=== PATIENT | male | born 1930 | race Caucasian/White ===

== ENCOUNTER 2018-10-20 06:20 | Inpatient (IN) | payer MEDICARE, MEDICAID ==
[2018-10-19 12:07] VITALS: BMI 29.1
--- NOTE | 2018-10-20 06:41 | CP.PCM.HP ---
History of Present Illness - History of Present Illness History of Present Illness: Consulted for Clearance for patient undergoing surgery today. 88 y/o [place] male PMH below here for elective Left TKR - cleared by Andreas Majano who is PMD. Patient has no cp, no sob, no fever chills, no abd pain. Only arthritis and uses a cane to walk. Arthritis is for both knees and left knee is being done today. ROS: all other systems negative. PMH: Hypertension Gerd FH: no inherited diseases SurgH: none only had colonoscopy SH: used to smoke quit 60 yrs ago no drugs no alcohol Meds: Omeprazole zofran atenolol - not taking for 1 month lisinopril - not taking for 1 month meloxicam Allergies: nkda Present on Admission - Present on Admission Any Indicators Present on Admission: No History of DVT/PE: No History of Uncontrolled Diabetes: No Urinary Catheter: No Decubitus Ulcer Present: No Review of Systems - Review of Systems All systems: reviewed and no additional remarkable complaints except Review of Systems: HPI Past Patient History - Past Medical History & Family History Past Medical History?: Yes - Past Social History Smoking Status: Former Smoker Chewing Tobacco Use: No Cigar Use: No Alcohol: None Drugs: Denies - CARDIAC Hx Cardiac Disorders: Yes Hx Hypertension: Yes - PULMONARY Hx Respiratory Disorders: No - NEUROLOGICAL Hx Neurological Disorder: No - HEENT Hx HEENT Problems: No - RENAL Hx Chronic Kidney Disease: No - ENDOCRINE/METABOLIC Hx Endocrine Disorders: No - HEMATOLOGICAL/ONCOLOGICAL Hx Blood Disorders: No - INTEGUMENTARY Hx Dermatological Problems: No - MUSCULOSKELETAL/RHEUMATOLOGICAL Hx Musculoskeletal Disorders: Yes Hx Arthritis: Yes (knees) Other/Comment: pelvic pain - GASTROINTESTINAL Hx Gastrointestinal Disorders: No - GENITOURINARY/GYNECOLOGICAL Hx Genitourinary Disorders: No - PSYCHIATRIC Hx Psychophysiologic Disorder: No - SURGICAL HISTORY Hx Surgeries: No - ANESTHESIA Hx Anesthesia: No Hx Anesthesia Reactions: No Meds Allergies/Adverse Reactions: Allergies Allergy/AdvReac Type Severity Reaction Status Date / Time No Known Allergies Allergy Verified 10/19/18 12:06 Physical Exam - Constitutional Appears: Well, Non-toxic, No Acute Distress - Head Exam Head Exam: ATRAUMATIC - Eye Exam Eye Exam: Normal appearance - ENT Exam ENT Exam: Mucous Membranes Moist - Neck Exam Neck exam: Positive for: Normal Inspection - Respiratory Exam Respiratory Exam: Clear to Auscultation Bilateral, NORMAL BREATHING PATTERN. absent: Rales, Rhonchi, Wheezes - Cardiovascular Exam Cardiovascular Exam: REGULAR RHYTHM, +S1, +S2 - GI/Abdominal Exam GI & Abdominal Exam: Normal Bowel Sounds, Soft. absent: Tenderness - Extremities Exam Extremities exam: Positive for: joint swelling. Negative for: pedal edema Additional comments: both knees pain with walking walks with cane - Neurological Exam Neurological exam: Alert, Oriented x3 - Psychiatric Exam Psychiatric exam: Normal Affect, Normal Mood - Skin Skin Exam: Normal Color Assessment & Plan - Assessment and Plan (Free Text) Assessment: 88 yo male pmh htn currently not taking meds bp was controlled despite meds with PMD. Here for Left TKR. Patient age and hypertension are risks for surgery. Family aware of risks. May proceed with surgery mod risk due to age. We will follow post operatively. Dr. Goddard and team to address dvt proph and pain.
[2018-10-20] MEDS ORDERED: Bacitracin Ointment 30 GM TUBE ONE (07:20)
[2018-10-20] MEDS ORDERED: ceFAZolin IV 1 gm in Dextrose 2 GM/100 ML BAG IVPB ONE (07:20)
[2018-10-20] MEDS ORDERED: Thrombin Topical 5,000 Int Units Spray Kit ONE (07:21)
[2018-10-20] MEDS ORDERED: Absorbable Gelatin Sponge Size 12-7 ONE (07:21)
--- NOTE | 2018-10-20 07:22 | CP.PCM.CON ---
History of Present Illness - History of Present Illness History of Present Illness: Orthopedic consultation Dr. Goddard 88M complains of left knee DJD failed conservative mgmt and elected for TKR. PMH: HTN PSH: denies non smoker medical clearance on chart Dr. Andreas Barlow Review of Systems - Review of Systems All systems: reviewed and no additional remarkable complaints except - Musculoskeletal Musculoskeletal: As Per HPI Past Patient History - Past Medical History & Family History Past Medical History?: Yes Past Family History: Reviewed and not pertinent - Past Social History Smoking Status: Former Smoker Chewing Tobacco Use: No Cigar Use: No Alcohol: None Drugs: Denies - CARDIAC Hx Cardiac Disorders: Yes Hx Hypertension: Yes - PULMONARY Hx Respiratory Disorders: No - NEUROLOGICAL Hx Neurological Disorder: No - HEENT Hx HEENT Problems: No - RENAL Hx Chronic Kidney Disease: No - ENDOCRINE/METABOLIC Hx Endocrine Disorders: No - HEMATOLOGICAL/ONCOLOGICAL Hx Blood Disorders: No - INTEGUMENTARY Hx Dermatological Problems: No - MUSCULOSKELETAL/RHEUMATOLOGICAL Hx Musculoskeletal Disorders: Yes Hx Arthritis: Yes (knees) Other/Comment: pelvic pain - GASTROINTESTINAL Hx Gastrointestinal Disorders: No - GENITOURINARY/GYNECOLOGICAL Hx Genitourinary Disorders: No - PSYCHIATRIC Hx Psychophysiologic Disorder: No - SURGICAL HISTORY Hx Surgeries: No - ANESTHESIA Hx Anesthesia: No Hx Anesthesia Reactions: No (as per son) Has any member of the family had a problem w/ anesthesia?: No Meds Allergies/Adverse Reactions: Allergies Allergy/AdvReac Type Severity Reaction Status Date / Time No Known Allergies Allergy Verified 10/19/18 12:06 Physical Exam - Constitutional Appears: Well, No Acute Distress - Extremities Exam Additional comments: +DP/PT pulses calves soft NT neg homans sensation intact - Expanded Lower Extremities Exam Left Knee exam: full ROM, tenderness Ankle exam: FULL ROM, NORMAL INSPECTION - Neurological Exam Neurological exam: Alert, Oriented x3 - Psychiatric Exam Psychiatric exam: Normal Affect, Normal Mood - Skin Skin Exam: Dry, Intact, Normal Color, Warm Assessment & Plan (1) Primary osteoarthritis of left knee Assessment and Plan: NPO T&S for OR Status: Acute (2) Hypertension Status: Acute (3) Vitamin D deficiency Assessment and Plan: 13 on pATs supp Status: Acute
[2018-10-20] MEDS ORDERED: Succinylcholine 200 mg/10 ml Inj IV ONE (07:39)
[2018-10-20] MEDS ORDERED: Propofol 10 mg/ml Inj (20 ML) ONE (07:39)
[2018-10-20] MEDS ORDERED: Lidocaine 1% 5ml Abboject ONE ×2 (07:39→08:06)
[2018-10-20] MEDS ORDERED: Etomidate 20 mg/10ml Inj IV ONE (07:39)
[2018-10-20] MEDS ORDERED: Lactated Ringer's 1,000 ML IV ONE ×2 (07:45→11:00)
[2018-10-20] MEDS ORDERED: Ropivacaine 0.5% 30ML IV ONE (07:50)
[2018-10-20] MEDS ORDERED: Lactated Ringer's 500 ML IV ONE (08:00)
[2018-10-20] MEDS ORDERED: Tranexamic Acid 1,000 MG in Sodium Chloride 0.9% 100 ML IVPB ONE (08:05)
[2018-10-20] MEDS ORDERED: Midazolam 2 MG/2 ML VIAL ONE (08:09)
[2018-10-20] MEDS ORDERED: Rocuronium 10 mg/ml (5 ml) ONE ×2 (08:23→08:57)
[2018-10-20] MEDS ORDERED: ePHEDrine 50 mg/ml Inj ONE (08:30)
[2018-10-20] MEDS ORDERED: Phenylephrine 10 mg/ml Inj ONE ×2 (08:31→08:32)
[2018-10-20 08:48] LABS: URINE BILIRUBIN NEGATIVE (NEGATIVE); URINE BLOOD SMALL (NEGATIVE); URINE CLARITY CLEAR (Clear); URINE COLOR YELLOW (YELLOW); URINE GLUCOSE (UA) NEG (NEGATIVE); URINE LEUKOCYTE ESTERASE NEG Leu/uL (Negative); URINE PROTEIN NEGATIVE (NEGATIVE); URINE UROBILINOGEN 0.2-1.0 mg/dL (0.2-1.0)
[2018-10-20] MEDS ORDERED: Neostigmine 1:1000 (1 mg/ml) Inj ONE (09:23)
[2018-10-20] MEDS ORDERED: Dexamethasone 4 mg/1 ml ONE (09:25)
[2018-10-20] MEDS ORDERED: Esmolol 100 mg/10ml Inj IV ONE (10:36)
--- NOTE | 2018-10-20 10:47 | PCM.SURG1 ---
Surgeon's Initial Post Op Note - Surgeon's Notes Surgeon: Rupesh [employer] Support Equipment Repairer: LESLIE Martin CRNFA Type of Anesthesia: General Endo, Spinal, Block Regional Anesthesia Administered By: DR Pratik Mayo Pre-Operative Diagnosis: sEVERE TRICOMPARTMENTAL o/a l KNEE Operative Findings: SEVERE TRICOMPARTMENTALo/a l KNEE. TRICOMPARTMENAL SYOVITISD WITH L;OOSE BODY. POSTERIOR CAPSULAR CONTRACTURE. LATERAL PATELLA CONTRACTURE Post-Operative Diagnosis: as above Operation Performed: L TKR. arthrotmy synovectomy/excision loose body. posterior capsule release. lateral patella release. computer navigation Specimen/Specimens Removed: synovium/loose body/ osteophytes Estimated Blood Loss: EBL {In ML}: 15 Blood Products Given: N/A Drains Used: No Drains Post-Op Condition: Fair Date of Surgery/Procedure: 10/20/18 Time of Surgery/Procedure: 08:55 (time in room 8:05/ anaesthesia indcution time 8:05)
[2018-10-20] MEDS ORDERED: Sodium Chloride 0.9% 1,000 ML IV SCH (11:00)
--- NOTE | 2018-10-20 11:18 | PCM.ANESB3 ---
Femoral Nerve Block - Femoral Nerve Block Date of Procedure: 10/20/18 Anesthesiologist: mala Pre-Procedure Diagnosis: L knee djd Post-Procedure Diagnosis: left knee djd Procedure Performed: Femoral Nerve Block Left - Procedure Femoral Nerve Block: The procedure was explained to the patient that it is for the post-operative pain management. Consent was obtained after a thorough discussion with the patient regarding the benefits and possible complications of local anesthetic block of the femoral nerve at the inguinal crease area. The patient was brought to the operating room and standard monitors were applied. Time-out was held with the circulating nurse to confirm the correct surgery and the appropriate block. After applying oxygen by nasal cannula and administering IV Sedation, patient was placed in supine position with fully extended lower extremities and the left___ groin exposed. The femoral artery was then carefully palpated. The ultrasound transducer was then applied to this area in the transverse plane and the femoral nerve was visualized lateral to the femoral artery and underneath the fascia iliaca. After thorough identification, the inguinal crease area was prepped with Betadine solution three times and 1 % Lidocaine was injected subcutaneously for topical anesthesia. At this point, a #22 gauge Stimuplex 2-inch needle was inserted immediately lateral to the femoral artery pulse at the inguinal crease and advanced perpendicularly. The needle was inserted to the ultrasound transducer in-plane towards the femoral nerve in a [id number] direction. Needle advancement was performed carefully under direct ultrasound visualization. Nerve stimulator was used and twitch of the left quadriceps muscle was obtained at current of _2.0____MA. After negative aspiration, _1____cc of _0.5____% __ropivicaine was injected and this was followed with ___19___ cc of __0.5 % _ropivicaine . Under ultrasound guidance the local anesthetics were observed spreading below fascia iliaca and around the femoral nerve. The needle was removed intact and sterile dressing was applied. The patient had stable vital signs, was conscious and in no apparent distress. The patient tolerated the left femoral nerve block well with stable vital signs and was prepared for subsequent surgery.
--- NOTE | 2018-10-20 11:51 | RAD ---
Date of service: 10/20/2018 PROCEDURE: Left Knee Radiographs. HISTORY: Pain. COMPARISON: None. FINDINGS: BONES: Status post left knee arthroplasty. No acute fracture. Prosthesis grossly intact. JOINTS: Normal. No osteoarthritis. JOINT EFFUSION: None. OTHER FINDINGS: Postoperative changes in anterior soft tissues with subcutaneous gas and anterior staple line IMPRESSION: Total knee replacement.
[2018-10-20] MEDS: HYDROmorphone 0.5 mg/0.5 ml ISec IVP PRN ×5 (12:08→13:20)
[2018-10-20] MEDS ORDERED: HYDROmorphone 0.5 mg/0.5 ml ISec IVP PRN (13:00)
[2018-10-20] MEDS ORDERED: HYDROmorphone 0.5 mg/0.5 ml ISec ONE (13:04)
[2018-10-20] MEDS ORDERED: Labetalol 5mg/ml (4ml) IVP PRN (13:57)
[2018-10-20] MEDS ORDERED: Labetalol 5mg/ml (4ml) ONE (14:02)
[2018-10-20] MEDS ORDERED: Labetalol 5 mg/ml Inj 20ML IVP PRN (14:10)
[2018-10-20] MEDS: Labetalol 5mg/ml (4ml) IVP PRN ×2 (14:30→14:45)
[2018-10-20] MEDS ORDERED: oxyCODONE 5 mg Immediate Release Tab PO PRN (17:05)
[2018-10-20] MEDS: ceFAZolin IV 2 gm in Dextrose 2 GM/50 ML BAG IVPB SCH (18:00)
[2018-10-21] MEDS: ceFAZolin IV 2 gm in Dextrose 2 GM/50 ML BAG IVPB SCH
[2018-10-21 06:27] LABS: HEMOGLOBIN 11.9 g/dL (12.0-18.0); MEAN CELL VOLUME 94.8 fl (80.0-94.0); MEAN CORPUSCULAR HEMOGLOBIN 31.6 pg (27.0-31.0); MEAN CORPUSCULAR HGB CONC 33.3 g/dL (33.0-37.0); RBC 3.77 Mil/uL (4.40-5.90); RED CELL DISTRIBUTION WIDTH 13.2 % (11.5-14.5); WHITE BLOOD COUNT 12.5 K/uL (4.8-10.8)
[2018-10-21 06:39] LABS: BLOOD UREA NITROGEN 15 mg/dl (9-20); CALCIUM 8.6 mg/dL (8.4-10.2); GFR NON-AFRICAN AMERICAN > 60
--- NOTE | 2018-10-21 08:35 | CP.PCM.PN ---
Subjective - Date & Time of Evaluation Date of Evaluation: 10/21/18 Time of Evaluation: 08:33 - Subjective Subjective: 88M seen and evaluated at bedside. Resting comfortably. States his pain is controlled as compared to yesterday. States he has moved his bowels but has a godinez as he was unable to urinate after the surgery. States he has been able to eat a little bit but is not very hungry. Complains of dry mouth. Denies N/V/F/C/SOB/CP and denies acute events overnight. Objective - Vital Signs/Intake and Output Vital Signs (last 24 hours): Temp Pulse Resp BP Pulse Ox 99.1 F 86 17 138/70 96 10/21/18 04:00 10/21/18 04:00 10/21/18 04:00 10/21/18 04:00 10/21/18 04:00 Intake and Output: 10/21/18 10/21/18 06:59 18:59 Intake Total 1250 Output Total 1500 Balance -250 - Medications Medications: Current Medications Acetaminophen (Tylenol 325mg Tab) 650 mg PO Q6 [facility] [place] Last Admin: 10/21/18 03:04 Dose: 650 mg Atenolol (Tenormin) 25 mg PO DAILY [facility] Last Admin: 10/20/18 18:06 Dose: 25 mg Calcium/Vitamin D (Oyster Shell Calcium/Vitamin D 500 Mg-200 Iu) 1 tab PO DAILY [facility] [place] Cholecalciferol (Vitamin D) 2,000 intlu PO DAILY [facility] [place] Docusate Sodium (Colace) 100 mg PO BID [facility] Last Admin: 10/20/18 18:05 Dose: 100 mg Enoxaparin Sodium (Lovenox) 40 mg SC DAILY [facility] [place]; Protocol Hydralazine HCl (Apresoline) 10 mg PO QID PRN PRN Reason: Other Last Admin: 10/20/18 18:06 Dose: 10 mg Labetalol HCl (Trandate) 5 mg IVP Q15MIN PRN PRN Reason: Systolic Blood Pressure Last Admin: 10/20/18 14:45 Dose: 5 mg Lisinopril (Zestril) 20 mg PO DAILY [facility] [place] Last Admin: 10/20/18 16:35 Dose: 20 mg Morphine Sulfate (Morphine) 2 mg IVP Q4 PRN PRN Reason: Pain, severe (8-10) Ondansetron HCl (Zofran Inj) 4 mg IVP Q6 PRN PRN Reason: Nausea/Vomiting Oxycodone HCl (Oxycodone Immediate Release Tab) 5 mg PO Q6 PRN PRN Reason: Pain, moderate (4-7) Pantoprazole Sodium (Protonix Ec Tab) 40 mg PO DAILY [facility] - Labs Labs: 10/21/18 05:40 10/21/18 05:40 - Constitutional Appears: Well, Non-toxic, No Acute Distress - Head Exam Head Exam: ATRAUMATIC - Eye Exam Eye Exam: Normal appearance - ENT Exam ENT Exam: Mucous Membranes Dry - Neck Exam Neck Exam: Normal Inspection - Respiratory Exam Respiratory Exam: Clear to Ausculation Bilateral, NORMAL BREATHING PATTERN - Cardiovascular Exam Cardiovascular Exam: REGULAR RHYTHM, +S1, +S2 - GI/Abdominal Exam GI & Abdominal Exam: Soft, Normal Bowel Sounds. absent: Tenderness - Extremities Exam Additional comments: L knee dressing c/d/i cap refill <3 seconds no pedal edema able to move toes gross and protective sensation intact - Neurological Exam Neurological Exam: Alert, Awake, Oriented x3 - Psychiatric Exam Psychiatric exam: Normal Affect, Normal Mood - Skin Skin Exam: Normal Color Assessment and Plan - Assessment and Plan (Free Text) Assessment: 88M with pmhx of HTN that is controlled despite not taking medications currently POD 1 L TKR Plan: 1. L knee osteoarthritis - Orthopedic consult - Dr. Goddard, recs appreciated - POD 1 L TKR - x-ray - adequate postoperative status, L TKR - Ancef 2 gm x2 doses for prophylaxis completed - pain controlled - continue to monitor labs - PT/OT consult - pending f/u recs - continue with incentive spirometry 2. HTN - chronic - lisinopril, atenolol, labetalol (max [address] Cameron) 3. Diet - heart healthy 4. DVT prophylaxis - Lovenox 40 mg SC daily
[2018-10-21] MEDS ORDERED: Calcium-Vit D 500 mg-200 Units Tab UD PO SCH (09:00)
[2018-10-21] MEDS ORDERED: Enoxaparin 40 mg Syringe SC SCH (09:00)
[2018-10-21] MEDS ORDERED: Cholecalciferol 1,000 INTLU TAB PO SCH (09:00)
[2018-10-21] MEDS ORDERED: Pantoprazole 40 mg EC Tab PO SCH (09:00)
--- NOTE | 2018-10-21 14:03 | CP.PCM.PN ---
Subjective - Date & Time of Evaluation Date of Evaluation: 10/21/18 Time of Evaluation: 14:01 - Subjective Subjective: Patient states pain is controlled. Tolerating PT. Objective - Vital Signs/Intake and Output Vital Signs (last 24 hours): Temp Pulse Resp BP Pulse Ox 98.8 F 81 20 124/76 95 10/21/18 08:47 10/21/18 09:11 10/21/18 08:47 10/21/18 09:11 10/21/18 08:47 Intake and Output: 10/21/18 10/21/18 06:59 18:59 Intake Total 1250 Output Total 1700 Balance -450 - Medications Medications: Current Medications Acetaminophen (Tylenol 325mg Tab) 650 mg PO Q6 [facility] Last Admin: 10/21/18 09:07 Dose: 650 mg Atenolol (Tenormin) 25 mg PO DAILY [facility] Last Admin: 10/21/18 09:11 Dose: 25 mg Calcium/Vitamin D (Oyster Shell Calcium/Vitamin D 500 Mg-200 Iu) 1 tab PO DAILY [facility] Last Admin: 10/21/18 09:10 Dose: 1 tab Cholecalciferol (Vitamin D) 2,000 intlu PO DAILY [facility] Last Admin: 10/21/18 09:11 Dose: 2,000 intlu Docusate Sodium (Colace) 100 mg PO BID [facility] Last Admin: 10/21/18 09:10 Dose: 100 mg Enoxaparin Sodium (Lovenox) 40 mg SC DAILY [facility]; Protocol Hydralazine HCl (Apresoline) 10 mg PO QID PRN PRN Reason: Other Last Admin: 10/20/18 18:06 Dose: 10 mg Labetalol HCl (Trandate) 5 mg IVP Q15MIN PRN PRN Reason: Systolic Blood Pressure Last Admin: 10/20/18 14:45 Dose: 5 mg Lisinopril (Zestril) 20 mg PO DAILY [facility] Last Admin: 10/21/18 09:11 Dose: 20 mg Morphine Sulfate (Morphine) 2 mg IVP Q4 PRN PRN Reason: Pain, severe (8-10) Ondansetron HCl (Zofran Inj) 4 mg IVP Q6 PRN PRN Reason: Nausea/Vomiting Oxycodone HCl (Oxycodone Immediate Release Tab) 5 mg PO Q6 PRN PRN Reason: Pain, moderate (4-7) Pantoprazole Sodium (Protonix Ec Tab) 40 mg PO DAILY [facility] Last Admin: 10/21/18 09:11 Dose: 40 mg - Labs Labs: 10/21/18 05:40 10/21/18 05:40 - Extremities Exam Additional comments: LLE: +ROM ankle/toes, sensation intact +DP/PT Pulses calves soft NT neg homans Assessment and Plan (1) Primary osteoarthritis of left knee Assessment & Plan: POD#1 s/p left TKR PT/OT VTE proph f/u labs d/c planning d/w Dr. Goddard, agrees with above Status: Acute (2) Hypertension Assessment & Plan: cont homes Status: Acute (3) Vitamin D deficiency Status: Acute
[2018-10-21] MEDS ORDERED: Benzocaine/Menthol (Cepacol) Lozenge PO ONE (15:51)
--- NOTE | 2018-10-21 16:04 | CP.PCM.DIS ---
Provider - Provider Date of Admission: 10/20/18 08:06 Attending physician: Cuco Gonzáles MD Consults: 10/20/18 08:06 Case Management Referral Routine Comment: Physician Instructions: Reason For Exam: Reason for Referral: Discharge Planning 10/20/18 08:11 Physician Consult Routine Comment: Consulting Provider: Felix Goddadr III Consulting Physician: Felix Goddard III Reason for Consult: tkr Time Spent in preparation of Discharge (in minutes): 30 Diagnosis - Discharge Diagnosis (1) Primary osteoarthritis of left knee Status: Acute Hospital Course - Lab Results Lab Results: Most Recent Lab Values WBC 12.5 K/uL (4.8-10.8) H D 10/21/18 05:40 RBC 3.77 Mil/uL (4.40-5.90) L 10/21/18 05:40 Hgb 11.9 g/dL (12.0-18.0) L 10/21/18 05:40 Hct 35.7 % (35.0-51.0) 10/21/18 05:40 MCV 94.8 fl (80.0-94.0) H D 10/21/18 05:40 MCH 31.6 pg (27.0-31.0) H 10/21/18 05:40 MCHC 33.3 g/dL (33.0-37.0) 10/21/18 05:40 RDW 13.2 % (11.5-14.5) 10/21/18 05:40 Plt Count 218 K/uL (130-400) 10/21/18 05:40 Sodium 137 mmol/l (132-148) 10/21/18 05:40 Potassium 3.7 MMOL/L (3.6-5.0) 10/21/18 05:40 Chloride 101 mmol/L (98-107) 10/21/18 05:40 Carbon Dioxide 25 mmol/L (22-30) 10/21/18 05:40 Anion Gap 15 (10-20) 10/21/18 05:40 BUN 15 mg/dl (9-20) 10/21/18 05:40 Creatinine 1.0 mg/dl (0.8-1.5) 10/21/18 05:40 Est GFR ( Amer) > 60 10/21/18 05:40 Est GFR (Non-Af Amer) > 60 10/21/18 05:40 Random Glucose 126 mg/dL (75-110) H 10/21/18 05:40 Calcium 8.6 mg/dL (8.4-10.2) 10/21/18 05:40 Urine Color Yellow (YELLOW) 10/20/18 07:30 Urine Clarity Clear (Clear) 10/20/18 07:30 Urine pH 7.0 (5.0-8.0) 10/20/18 07:30 Ur Specific [place] 1.018 (1.003-1.030) 10/20/18 07:30 Urine Protein Negative mg/dL (NEGATIVE) 10/20/18 07:30 Urine Glucose (UA) Neg mg/dL (NEGATIVE) 10/20/18 07:30 Urine Ketones Negative mg/dL (NEGATIVE) 10/20/18 07:30 Urine Blood Small (NEGATIVE) 10/20/18 07:30 Urine Nitrate Negative (NEGATIVE) 10/20/18 07:30 Urine Bilirubin Negative (NEGATIVE) 10/20/18 07:30 Urine Urobilinogen 0.2-1.0 mg/dL (0.2-1.0) 10/20/18 07:30 Ur Leukocyte Esterase Neg Juan Jose/uL (Negative) 10/20/18 07:30 Urine RBC (Auto) 7 /hpf (0-3) H 10/20/18 07:30 Urine Microscopic WBC 1 /hpf (0-5) 10/20/18 07:30 - Hospital Course Hospital Course: 88M with pmhx of HTN and osteoarthritis of both knees presented to [facility] and seen for elective Left TKR - cleared by Andreas Majano who is PMD. Patient failed conservative treatment for osteoarthritis of left knee. While in house orthopedics was consulted and Dr. Goddard performed L TKR. Ancef 2 gm was given for prophylaxis. PT/OT was consulted and recommended further skilled PT. HTN is chronic and patient was not taking medication. Started on lisinopril and atenolol while in house, continue as outpatient. Lovenox 40 mg SC daily as DVT prophylaxis while in house. Patient for d/c to TCU for PT, deconditiong, and pain control. - Date & Time of H&P Date of H&P: 10/21/18 Time of H&P: 16:02 Discharge Exam - Head Exam Head Exam: ATRAUMATIC - Eye Exam Eye Exam: Normal appearance - ENT Exam ENT Exam: Mucous Membranes Moist - Neck Exam Neck exam: Normal Inspection - Respiratory Exam Respiratory Exam: Clear to PA & Lateral, NORMAL BREATHING PATTERN - Cardiovascular Exam Cardiovascular Exam: REGULAR RHYTHM, +S1, +S2 - GI/Abdominal Exam GI & Abdominal Exam: Normal Bowel Sounds, Soft. absent: Tenderness - Extremities Exam Additional comments: LLE: +ROM ankle/toes, sensation intact +DP/PT Pulses calves soft NT neg homans Dressing c/d/i - Neurological Exam Neurological exam: Alert, Oriented x3 - Psychiatric Exam Psychiatric exam: Normal Affect, Normal Mood - Skin Skin Exam: Normal Color Discharge Plan - Follow Up Plan Condition: GOOD Disposition: REHAB FACILITY/REHAB UNIT Clinical Quality Measures - Date & Time of Discharge Summary Date of Discharge Summary: 10/21/18 Time of Discharge Summary: 16:05
[2018-10-21 16:51] VITALS: TEMP 98
[2018-10-21 18:13] VITALS: BP 142/73; PULSE 80; RESP 19; O2SAT 98
--- NOTE | 2018-10-22 22:40 | OP ---
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 POSTOPERATIVE DIAGNOSES: 1. 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 2. Tricompartmental synovitis. 3. Loose bodies. 4. Posterior capsular contracture. 5. Lateral patellar retinacular contracture. OPERATIVE FINDINGS: 1, Again as above, severe tricompartmental osteoarthritis of the left knee. 2. Tricompartmental synovitis with loose body. 3. Posterior capsular contracture. 4. Lateral patellar retinacular contracture. OPERATIVE PROCEDURES: 1. Left total knee replacement arthroplasty. 2. Anterior and posterior synovectomy. 3. Posterior capsular release. 4. Lateral patellar retinacular release. 5. Computer navigation. SURGEON: Felix Goddard MD PRIMARY SPECIAL EDUCATOR: Lissy Morales PA-C SECOND PRESSURE SEALER AND TESTER: Laura Christopher, certified registered nursing [employer]. BLOOD LOSS: 15 mL. No blood products given. DRAINS: No drains. POSTOPERATIVE CONDITION: Stable. ANESTHESIA INDUCTION TIME: 08:05. INCISION TIME: 08:55. OPERATIVE INDICATION: Mart Cunningham is an 88-year-old gentleman, referred to me by Dr. Simmons, who presents with severe osteoarthritis of the left knee. The patient can no longer withstand the discomfort. Pros, cons, risks and benefits of replacement arthroplasty were discussed. The possibility of mechanical failure, infection, thromboembolic disease, secondary surgery and tertiary surgery is discussed by informed consent with the computer mediated translation service as well as through his son, David. The patient wished the surgery to be accomplished. OPERATIVE PROCEDURE: After having obtained informed consent in the above fashion, after having identified the side, site and procedure and critical pause/time-out, after the satisfactory induction of the anesthetic, the patient identified as Mart Cunningham in the supine position with all bony prominences well padded. The left lower extremity was prepped and free draped in usual fashion for lower extremity surgery. The tourniquet had been applied, but was not yet inflated. After exsanguinating the limb using a 6-inch Esmarch bandage, the tourniquet which had been applied was inflated to 350 mmHg. A straight midline approach was made to the knee. The skin incision was carried down through the skin and subcutaneous tissue. The dissection was carried down to level of prepatellar bursa. Medial and lateral patellar retinaculum were exposed. A medial arthrotomy was accomplished. Dissection was carried around posteromedially to the direct head of the semimembranosus tendon. A portion of the patellar ligament is elevated. The patella was everted. The knee is flexed. Medial and lateral meniscectomies were accomplished. Anterior and posterior cruciate ligaments were excised. The tibia was dislocated anteriorly. An initial osteotomy of the arthroplasty was accomplished on the tibial side. This having been accomplished, a portion of the iliotibial band was released. Immediately on dislocating the tibia, there found to be too large loose bodies which are excised. Anterior synovectomy was accomplished and at this point in time, the initial osteotomy was accomplished. On the patella, border osteophytes were debrided. The patella girth was 30 mm. Freehand patella osteotomy is accomplished and the patella was protected. The computer navigation commenced at this point in time with the computer navigation device. The anterior strut was placed on the proximal medial aspect of the tibia. The sensor was applied as was the accelerometer. This having been accomplished, the offset is registered, the offset being the posterior insertion of the anterior cruciate ligament. Anterior and posterior cruciate ligaments were excised. Medial and lateral meniscectomies were accomplished. The alignment was accomplished. The proximal tibia is cut approximately 1 mm below the most deficient side. Osteotomy having been accomplished, the iliotibial band insertion into lateral aspect of the tibia and Gerdy's tubercle was released and attention was turned to the femur. Notch osteophytes, border osteophytes were debrided. The guide pin for registration was placed at the superior aspect of the intercondylar notch. Distal femoral cutting guide was applied. The sensor was applied as was the accelerometer. The hip center was found and the index offset is registered as well. The cut is set to 0 degrees of varus-valgus and 0.5 degrees of flexion of the component. The distal cut was accomplished 10 mm and the 10 mm osteotomy was accomplished. This having been accomplished, the anterior and posterior sizing is for 2.5 femoral component. The 4-in-1 block was placed across the epicondylar axis. Anterior and posterior osteotomies were accomplished. Chamfer cuts were accomplished. The lamina right of way appraiser was placed. The posterior capsule was released. This having been accomplished with the posterior capsular release having been accomplished, anterior and posterior synovectomy having been accomplished and the wound was thoroughly irrigated. The intercondylar notch was reamed, but at this point in time, the #2 tibial component was placed. Guidance rotation of the lateral aspect of tibial condyle, mid malleolar axis, and medial third of the tibial tuberosity. Trial components were placed with 15 mm tibial insert and the flexion/extension gap was found to be excellent. This having been accomplished, the wound was thoroughly irrigated. The patella was sized to a 32 mm patella. A lateral patellar retinacular release was accomplished from inside out. The patella was found to be stable. Posterior capsule having been released, the tibia, femur and patella were prepared. A #2.5 cemented femoral component is cemented, the 2 mm tibial component, 15 mm polyethylene and 32 mm patella. This having been accomplished, all device having been cemented, the wound was thoroughly irrigated. Hemostasis controlled with the Aquamantys. Flexion/extension balance, patella balance was found to be excellent and the computer navigation again in the aforementioned fashion had been accomplished on both the tibial and femoral sides. Closures in layers, #2 FiberWire followed by 0 Vicryl, 2-0 Vicryl, and jennifer for skin. No drain was employed. David Roc compression dressing and knee immobilizers were employed. Felix Goddard MD
== END 2018-10-21 20:40 | DRG 470 ==
LOC: H.OPSURG 06:20 → H.MEDSURG1 08:06
PROVIDERS: ADMIT Internal Medicine; ATTEND Internal Medicine
PROC: 0SND0ZZ Release Left Knee Joint, Open Approach (ICD-10-PCS; 2018-10-20)
PROC: 3E0T3BZ Introduction of Anesthetic Agent into Peripheral Nerves and Plexi, Percutaneous Approach (ICD-10-PCS; 2018-10-20)
PROC: 0SRD0JZ Replacement of Left Knee Joint with Synthetic Substitute, Open Approach (ICD-10-PCS; principal; 2018-10-20 07:45)
PROC: 0SBD0ZZ Excision of Left Knee Joint, Open Approach (ICD-10-PCS; 2018-10-20 07:45)
DX: M17.0 Bilateral primary osteoarthritis of knee (principal); M65.9 Synovitis and tenosynovitis, unspecified; Z87.891 Personal history of nicotine dependence; Z96.652 Presence of left artificial knee joint; R68.2 Dry mouth, unspecified; E55.9 Vitamin D deficiency, unspecified; I10 Essential (primary) hypertension; K21.9 Gastro-esophageal reflux disease without esophagitis

== ENCOUNTER 2018-11-03 12:08 | Inpatient (IN) | payer MEDICARE, MEDICAID ==
[2018-11-03 13:22] LABS: BASO # 0.1 K/uL (0.0-0.2); BASO % 0.5 % (0.0-2.0); EOS # 0.2 K/uL (0.0-0.7); EOS % 0.9 % (0.0-4.0); LYMPH # 1.5 K/uL (1.0-4.3); LYMPH % 8.9 % (20.0-40.0); MEAN CELL VOLUME 96.7 fl (80.0-94.0); MEAN CORPUSCULAR HEMOGLOBIN 32.2 pg (27.0-31.0); MEAN CORPUSCULAR HGB CONC 33.3 g/dL (33.0-37.0); MEAN PLATELET VOLUME 6.8 fl (7.2-11.7); MONO # 1.7 K/uL (0.0-0.8); MONO % 10.1 % (0.0-10.0); NEUT # 13.1 K/uL (1.8-7.0); NEUT % 79.6 % (50.0-75.0); NRBC % 0.1 % (0.0-0.0); PLATELET COUNT 446 K/uL (130-400); RBC 3.41 Mil/uL (4.40-5.90); RED CELL DISTRIBUTION WIDTH 13.3 % (11.5-14.5); WHITE BLOOD COUNT 16.5 K/uL (4.8-10.8)
--- NOTE | 2018-11-03 13:25 | ED PDOC ---
HPI: Abdomen Time Seen by Provider: 11/03/18 12:44 Chief Complaint (Nursing): Abdominal Pain Chief Complaint (Provider): sent from [place] for "misplaced godinez" History Per: EMS History/Exam Limitations: other (poor historian) Current Symptoms Are (Timing): Still Present Additional Complaint(s): 88yo male arrives from rehab center where he is recovering from L knee surgery, per report had urinary retention, godinez placed but per [facility] paperwork it's misplaced in prostate. Patient poor historian only notes pain to area but nonspecific. Patient had R leg bag draining clear darryl colored urine approx 150ml in bag. No blood clots. Past Medical History Reviewed: Historical Data, Nursing Documentation, Vital Signs Vital Signs: Last Vital Signs Temp 98.1 F 11/03/18 12:19 Pulse 88 11/03/18 12:19 Resp 18 11/03/18 12:19 BP 106/67 11/03/18 12:19 Pulse Ox 99 11/03/18 12:19 - Medical History PMH: Arthritis (knees), HTN Denies: Chronic Kidney Disease - Surgical History Surgical History: Endoscopy - Family History Family History: States: Unknown Family Hx - Living Arrangements Living Arrangements: Intermediate/Assist Lvng (rehab cuirrently) - Home Medications Home Medications: Ambulatory Orders Medication Instructions Recorded RX: Atenolol [Tenormin] 25 mg PO DAILY tab 10/21/18 RX: Calcium/Vitamin D [Oyster 1 tab PO DAILY tab 10/21/18 Shell Calcium/Vitamin D 500 mg-200 IU] RX: Cholecalciferol [Vitamin D 2,000 intlu PO DAILY tab 10/21/18 1000 IU] RX: Docusate [Colace] 100 mg PO BID cap 10/21/18 RX: Enoxaparin [Lovenox] 40 mg SC DAILY syr 10/21/18 RX: Lisinopril [Zestril] 20 mg PO DAILY tab 10/21/18 Acetaminophen [Tylenol 325mg tab] 650 mg PO Q4 PRN 11/03/18 Famotidine [Pepcid] 40 mg PO HS 11/03/18 Magnesium Hydroxide [Milk Of 30 ml PO DAILY PRN 11/03/18 Magnesia] RX: Acetaminophen [Tylenol 325mg 650 mg PO Q4 PRN 12/20/18 tab] RX: Gabapentin [Neurontin] 100 mg PO HS 11/03/18 RX: hydrALAZINE [Apresoline] 10 mg PO Q6 11/03/18 RX: oxyCODONE [oxyCODONE Immediate 5 mg PO Q4 PRN 11/03/18 Release Tab] Sennosides [Senna] 17.2 mg PO Q12 11/03/18 guaiFENesin/Dextromethorphan 10 ml PO Q8 11/03/18 [Robitussin DM] oxyCODONE [oxyCODONE Immediate 10 mg PO Q4 PRN 11/03/18 Release Tab] - Allergies Allergies/Adverse Reactions: Allergies Allergy/AdvReac Type Severity Reaction Status Date / Time No Known Allergies Allergy Verified 10/19/18 12:06 Review of Systems ROS Statement: Except As Marked, All Systems Reviewed And Found Negative Constitutional: Negative for: Fever, Chills Eyes: Negative for: Vision Change Cardiovascular: Negative for: Chest Pain Respiratory: Negative for: Cough, Shortness of Breath Gastrointestinal: Negative for: Nausea, Vomiting, Abdominal Pain Genitourinary Male: Positive for: Penile Pain. Negative for: Dysuria, Incontinence Musculoskeletal: Negative for: Neck Pain Skin: Negative for: Rash, Lesions, Jaundice Neurological: Negative for: Weakness, Numbness Physical Exam - Reviewed Nursing Documentation Reviewed: Yes Vital Signs Reviewed: Yes - Physical Exam Appears: Positive for: Well, Non-toxic, No Acute Distress Head Exam: Positive for: NORMAL INSPECTION, NORMOCEPHALIC Skin: Positive for: Warm, Dry Eye Exam: Positive for: Normal appearance Cardiovascular/Chest: Positive for: Regular Rate, Rhythm Respiratory: Positive for: CNT, Normal Breath Sounds Gastrointestinal/Abdominal: Positive for: Soft. Negative for: Tenderness Male Genital Exam: Positive for: other (godinez catheter in draining to L leg bag) Back: Positive for: Normal Inspection Extremity: Positive for: Other (L leg in knee immobilizer). Negative for: Pedal Edema, Deformity Neurologic/Psych: Positive for: Alert, Oriented. Negative for: Motor/Sensory Deficits - Laboratory Results Result Diagrams: 11/04/18 07:00 11/03/18 13:15 - ECG O2 Sat by Pulse Oximetry: 99 Medical Decision Making Medical Decision Making: check basic labs and replace godinez RN replaced godinez UA/Ucx sent off new godinez given elev WBC Endorsed Dr chowdhury 2pm Disposition - Clinical Impression Clinical Impression: Displacement of Godinez catheter - Patient ED Disposition Is Patient to be Admitted: Transfer of Care Counseled Patient/Family Regarding: Studies Performed, Diagnosis - Disposition Disposition: Transfer of Care Disposition Time: 15:00 Condition: STABLE Patient Signed Over To: Blu Chowdhury Y Handoff Comments: pending new godinez and UA result
[2018-11-03 13:53] LABS: BLOOD UREA NITROGEN 22 mg/dl (9-20); GFR NON-AFRICAN AMERICAN 52
[2018-11-03 14:37] LABS: BANDS 1 % (0-2); LYMPHOCYTE 9 % (20-50); NEUTROPHIL 77 % (42-75)
[2018-11-03 14:38] LABS: BASOPHIL 1 % (0-2); MONOCYTE 11 % (0-10); MYELOCYTE 1 % (0-0); PLATELET ESTIMATE INCREASED (NORMAL); TOTAL CELLS COUNTED 100
[2018-11-03 14:41] LABS: HYPOCHROMIC SLIGHT; LARGE PLATELETS PRESENT
--- NOTE | 2018-11-03 15:31 | ED PDOC ---
- Laboratory Results Result Diagrams: 11/07/18 10:52 11/07/18 10:52 - ECG O2 Sat by Pulse Oximetry: 98 Medical Decision Making Medical Decision Making: Time: 1500 --Patient endorsed to provider pending UA results. 17:50 --Patient has a WBC of 16.9. Ordered a VBG with lactic acid and gave IV Rocephin for uti. Concern because PLTs went from 200s to 400s in less than two weeks. WBC is also elevated compared to prior. Discussed results with patient and son at bedside. Explained need for observation admission due to UTI and sepsis. Patient accepted to medical service. 2116 Abdomen/Pelvis FINDINGS: LUNG BASES: The heart is borderline in size, the pulmonary bases are well-aerated. LIVER: Unremarkable. GALLBLADDER AND BILE DUCTS: The gallbladder appears within normal limits. No radioopaque gallstones are seen. No biliary ductal dilatation is evident. PANCREAS: Unremarkable. SPLEEN: Unremarkable. ADRENAL GLANDS: Unremarkable. KIDNEYS, URETERS, AND BLADDER: The urinary bladder is abnormal. There are several bubbles of gas within the urinary bladder, no Ford catheter, and only one of the bubbles of gas is in the nondependent portion of the urinary bladder. This suggests some solid material in the urinary bladder. The bladder camargo are non-distinct. There is a tiny, 1 mm calculus, nonobstructing, of the right kidney. STOMACH AND BOWEL: Unremarkable appearance of the stomach and bowel. No evidence of bowel obstruction. No evidence suggesting enteritis or colitis. APPENDIX: No evidence of acute appendicitis on CT examination. PERITONEUM: No free fluid. No free air. LYMPH NODES: No lymphadenopathy is evident. VASCULATURE: No evidence of abdominal aortic aneurysm. BONES: There is a scoliosis of the lumbar spine with the convexity towards the left. MISCELLANEOUS: Respiratory motion obscures fine detail. There is disc space narrowing at all lumbar levels. IMPRESSION: 1. The urinary bladder is abnormal. There are several bubbles of gas within the urinary bladder, no Ford catheter, and only one of the bubbles of gas is in the nondependent portion of the urinary bladder. This suggests some solid material in the urinary bladder. 2. The bladder camargo are non-distinct. 3. There is a tiny, 1 mm calculus, nonobstructing, of the right kidney. 4. Respiratory motion obscures fine detail. 5. The heart is borderline in size, the pulmonary bases are well-aerated. 6. There is a scoliosis of the lumbar spine with the convexity towards the left. 7. There is disc space narrowing at all lumbar levels. pt aware of results of imaging Scribe Attestation: Documented by Eugenia Miles, acting as a scribe for Blu Chowdhury MD. Provider Scribe Attestation: All medical record entries made by the Scribe were at my direction and personally dictated by me. I have reviewed the chart and agree that the record accurately reflects my personal performance of the history, physical exam, medical decision making, and the department course for this patient. I have also personally directed, reviewed, and agree with the discharge instructions and disposition. Disposition - Clinical Impression Clinical Impression: Displacement of Ford catheter - POA Present On Arrival: None - Disposition Disposition: Admitted as In-Patient Disposition Time: 17:55 Condition: STABLE
[2018-11-03 16:13] LABS: SQUAMOUS EPITHIAL < 1 /hpf (0-5); URINE BACTERIA FEW (<OCC); URINE BILIRUBIN NEGATIVE (NEGATIVE); URINE BLOOD LARGE (NEGATIVE); URINE CLARITY CLOUDY (Clear); URINE COLOR YELLOW (YELLOW); URINE GLUCOSE (UA) NEG (NEGATIVE); URINE HYALINE CAST 0-2 /hpf (0-2); URINE LEUKOCYTE ESTERASE MOD Leu/uL (Negative); URINE PROTEIN 100 mg/dL (NEGATIVE); URINE UROBILINOGEN 0.2-1.0 mg/dL (0.2-1.0)
[2018-11-03] MEDS ORDERED: Sodium Chloride 0.9% 1,000 ML IV STA (17:53)
[2018-11-03] MEDS ORDERED: cefTRIAXone (Rocephin) 1 gm Inj ONE (18:26)
[2018-11-03 18:52] LABS: VENOUS BLOOD GAS BASE EXCESS -0.6 mmol/L (0.0-2.0); VENOUS BLOOD GAS PCO2 35 mmHg (40-60); VENOUS BLOOD GAS PO2 48 mm/Hg (30-55); VENOUS BLOOD PH 7.43 (7.32-7.43)
[2018-11-03] MEDS ORDERED: Dextrose 5%/0.45% NS 1,000 ML IV SCH (23:30)
[2018-11-03] MEDS ORDERED: Magnesium Hydroxide Susp 30 ml UD PO PRN (23:36)
[2018-11-04] MEDS: oxyCODONE 10 mg Immediate Release Tab PO PRN ×4 (05:48→21:03)
[2018-11-04 07:42] LABS: HEMOGLOBIN 10.4 g/dL (12.0-18.0); MEAN CELL VOLUME 94.9 fl (80.0-94.0); MEAN CORPUSCULAR HEMOGLOBIN 31.5 pg (27.0-31.0); MEAN CORPUSCULAR HGB CONC 33.2 g/dL (33.0-37.0); RBC 3.31 Mil/uL (4.40-5.90); RED CELL DISTRIBUTION WIDTH 13.3 % (11.5-14.5); WHITE BLOOD COUNT 12.5 K/uL (4.8-10.8)
[2018-11-04 11:48] VITALS: BMI 25.4
--- NOTE | 2018-11-04 12:42 | CT ---
Date of service: 11/03/2018 PROCEDURE: CT Abdomen and Pelvis. The. HISTORY: Lower abdominal pain COMPARISON: No prior study available comparison TECHNIQUE: Contiguous axial images of the abdomen and pelvis performed of without oral or intravenous contrast material additional 2D sagittal and coronal reformats generated. Coronal and Sagittal reformats generated. Radiation dose: Total exam DLP = 521.32 mGy-cm. This CT exam was performed using one or more of the following dose reduction techniques: Automated exposure control, adjustment of the mA and/or kV according to patient size, and/or use of iterative reconstruction technique. FINDINGS: LOWER THORAX: Minor bibasilar atelectasis both posterior lower lung suresh. Additionally, some minor linear scarring changes are also present in the lingular and middle lobe regions as well. No evidence of effusion or basilar pneumothorax. Heart size is upper limits of normal. No evidence of significant pericardial effusion. There is a small hiatal hernia with wall thickening of the distal esophagus that may in part be due to protrusion of gastric mucosa however the possibility of esophagitis or other intrinsic/invasive wall lesion not excluded.. Endoscopy follow-up is suggested. LIVER: Liver exhibits normal size without mass collection or calcification.. Mild fatty hepatic infiltration. GALLBLADDER AND BILE DUCTS: Unremarkable. PANCREAS: Pancreas appears slightly atrophic and fatty replaced. No pancreatic masses collections or calcifications. No significant pancreatic ductal dilatation. SPLEEN: Unremarkable. No splenomegaly. ADRENALS: There are no adrenal lesions. KIDNEYS AND URETERS: Kidneys demonstrate relatively symmetric size. No evidence of obstructing nephrolithiasis however there does appear to be a yvon of calcium lower pole collecting system left kidney. No evidence of hydronephrosis. There is a tiny approximately 5.8 mm exophytic hyperdense lesion seen lower pole left kidney nonspecific. While this could represent a hyperdense or hemorrhagic cyst with some calcification, the possibility of a solid lesion not excluded. There appears to be a 2nd smaller approximately 2.8 mm tiny exophytic hyperdense lesion anterior aspect lower pole left kidney as well.. There also an adjacent approximately 2.7 x 2.6 cm exophytic cyst lateral cortex kidney. All these findings are seen on axial image series 3 through 95. Small approximately 10.4 mm slightly hyperdense exophytic lesion lower pole right kidney that may also represent hyperdense cyst. Recommend follow-up thyroid ultrasound further evaluation to exclude solid lesions. BLADDER: The urinary bladder is collapsed about an in situ unclamped Ford catheter. Urinary bladder wall is thickened in part due to collapse and probably muscular hypertrophy however cystitis or other intrinsic/invasive wall lesion not excluded. Bubbles of air are also present within the bladder lumen felt to be secondary to recent instrumentation with a Ford catheter as well. REPRODUCTIVE: Prostate gland measures approximately 4.0 cm in transverse dimension. APPENDIX: Unremarkable. BOWEL: Evaluation of the bowel is somewhat limited due to the lack of oral contrast material.. The stomach is partially distended with food debris liquid and air. Visualized loops of small bowel exhibit normal contour and caliber. No evidence of acute mechanical small bowel obstruction. Stool and air seen throughout the large bowel. PERITONEUM: No fluid collection. No free air. Small fat containing umbilical hernia. Small bilateral fat containing inguinal hernias left larger than right. There is a small subcutaneous nodule Note also made of a bubble of air within the subcutaneous tissues left lower anterior abdominal wall possibly related to recent subcutaneous injection. Clinical correlation recommended. There is a small nodule within the subcutaneous right lower anterior abdominal wall LYMPH NODES: Unremarkable. No enlarged lymph nodes. VASCULATURE: Unremarkable. No aortic aneurysm. Mild aortic atherosclerotic calcification or mural plaque present. BONES: Multilevel degenerative spondylosis of the lower thoracic and lumbar spine. There is a mild levoscoliosis centered at the L2-L3 level. The no acute compression fractures no retropulsed fragments. OTHER FINDINGS: None. IMPRESSION: Fatty hepatic infiltration. Small hiatal hernia with wall thickening of the distal esophagus likely due to protrusion of gastric mucosa however esophagitis or other intrinsic/invasive wall lesion not excluded. Endoscopy follow-up suggested. There is a yvon of calcium seen lower pole collecting system right kidney with no evidence of hydronephrosis. Small cyst lower pole left kidney. There are 2 small exophytic hyperdense lesions lower pole left kidney is well possibly representing hyperdense or hemorrhagic cyst with some calcification. Solid lesions not excluded There is a small 10.4 mm slightly hyperdense exophytic lesion lower pole right kidney that could represent hyperdense cyst as well. Recommend follow-up renal ultrasound to exclude solid lesions. In situ unclamped Ford catheter around which the urinary bladder is collapsed. Bladder wall thickening likely due to collapse and muscular hypertrophy however correlation with urinalysis recommended to exclude cystitis or other intrinsic/invasive wall lesion. Small amount of air is also present felt to be secondary to recent instrumentation. Note that this report was placed in PA review folder for follow up.
--- NOTE | 2018-11-04 14:40 | CP.PCM.PN ---
Subjective - Date & Time of Evaluation Date of Evaluation: 11/04/18 Time of Evaluation: 14:42 - Subjective Subjective: 88 YR OLD MALE S/P TRAUMATIC GARCIA CATH INSERTION IN REHAB WHERE HE WAS RECOVERING FROM L KNEE SURGERY. HE IS ADMITTED FOR IV ANTIBIOTIC THERAPY AND UROLOGY EVAL. Objective - Vital Signs/Intake and Output Vital Signs (last 24 hours): Temp Pulse Resp BP Pulse Ox 99.3 F 98 H 20 112/65 95 11/04/18 08:04 11/04/18 09:21 11/04/18 08:04 11/04/18 09:21 11/04/18 08:04 Intake and Output: 11/04/18 11/04/18 06:59 18:59 Intake Total 640 Output Total 800 Balance -160 - Medications Medications: Current Medications Acetaminophen (Tylenol 325mg Tab) 650 mg PO Q4 PRN PRN Reason: Pain, Mild (1-3) Acetaminophen (Tylenol 325mg Tab) 650 mg PO Q4 PRN PRN Reason: Temp >100 Atenolol (Tenormin) 25 mg PO DAILY [facility] Last Admin: 11/04/18 09:21 Dose: 25 mg Docusate Sodium (Colace) 100 mg PO BID [facility] Last Admin: 11/04/18 09:20 Dose: 100 mg Enoxaparin Sodium (Lovenox) 40 mg SC DAILY [facility]; Protocol Famotidine (Pepcid) 40 mg PO HS [facility] Gabapentin (Neurontin) 100 mg PO HS [facility] Hydralazine HCl (Apresoline) 10 mg PO Q6 [facility] Last Admin: 11/04/18 09:17 Dose: 10 mg Dextrose/Sodium Chloride (Dextrose 5%/0.45% Ns 1000 Ml) 1,000 mls @ 40 mls/hr IV .Q24H [facility] Stop: 11/04/18 23:21 Last Admin: 11/04/18 00:13 Dose: 40 mls/hr Ceftriaxone Sodium 1 gm/ (Sodium Chloride) 100 mls @ 100 mls/hr IVPB DAILY [facility]; Protocol Last Admin: 11/04/18 09:16 Dose: 100 mls/hr Lisinopril (Zestril) 20 mg PO DAILY [facility] Last Admin: 11/04/18 09:21 Dose: 20 mg Magnesium Hydroxide (Milk Of Magnesia) 30 ml PO DAILY PRN PRN Reason: No bowel movement x 3 days Oxycodone HCl (Oxycodone Immediate Release Tab) 5 mg PO Q4 PRN PRN Reason: Pain, moderate (4-7) Oxycodone HCl (Oxycodone Immediate Release Tab) 10 mg PO Q4 PRN PRN Reason: Pain, severe (8-10) Last Admin: 11/04/18 12:05 Dose: 10 mg Sennosides (Senokot Tab) 17.2 mg PO Q12 [facility] Last Admin: 11/04/18 09:20 Dose: 17.2 mg - Labs Labs: 11/04/18 07:00 11/03/18 13:15 - Constitutional Appears: No Acute Distress - Head Exam Head Exam: ATRAUMATIC, NORMAL INSPECTION, NORMOCEPHALIC - Eye Exam Eye Exam: EOMI, Normal appearance, PERRL Pupil Exam: NORMAL ACCOMODATION, PERRL - ENT Exam ENT Exam: Mucous Membranes Moist, Normal Exam - Neck Exam Neck Exam: Full ROM, Normal Inspection. absent: Lymphadenopathy - Respiratory Exam Respiratory Exam: Clear to Ausculation Bilateral, NORMAL BREATHING PATTERN - Cardiovascular Exam Cardiovascular Exam: REGULAR RHYTHM, +S1, +S2. absent: Murmur - GI/Abdominal Exam GI & Abdominal Exam: Soft, Normal Bowel Sounds. absent: Tenderness - Rectal Exam Rectal Exam: NORMAL INSPECTION - Exam Additional comments: GARCIA IN PLACE - Extremities Exam Extremities Exam: Full ROM, Normal Capillary Refill, Normal Inspection. absent: Joint Swelling, Pedal Edema - Back Exam Back Exam: NORMAL INSPECTION - Neurological Exam Neurological Exam: Alert, Awake, CN II-XII Intact, Normal Gait, Oriented x3 - Psychiatric Exam Psychiatric exam: Normal Affect, Normal Mood - Skin Skin Exam: Dry, Intact, Normal Color, Warm Assessment and Plan - Assessment and Plan (Free Text) Assessment: UTI SEPSIS S/P L KNEE SURGERY Plan: D/C TO NH IN AM
[2018-11-04] MEDS ORDERED: Chlorhexidine Gluconate 1 APPL/PKT TP ONE (16:50)
[2018-11-04] MEDS: Enoxaparin 40 mg Syringe SC SCH (17:01)
--- NOTE | 2018-11-05 00:54 | CON ---
DATE: 11/04/2018 COMPREHENSIVE UROLOGY CONSULTATION TIME OF CONSULTATION: Roughly around 5:10 p.m. BRIEF HISTORY: The patient is an 88-year-old Thai male status post left total knee replacement done at [facility] around 10/27/2018, who was discharged to the [facility] for rehabilitation postop and was found to be in urinary retention and a Ford catheter was placed but not positioned correctly in the bladder and the patient was sent to [facility] where the Ford Catheter was removed and replaced with the Ford catheter now in good position in the bladder. Abdominal pelvic CT done on 11/03/2018 showed no obstructive uropathy. A yvon of calcium in the right renal collecting system and multiple bilateral exophytic possibly cystic masses which might be considered hemorrhagic cysts noted in both kidneys, the largest being around 10.8 mm in diameter. Renal ultrasound is recommended as followup. Masses are just hyperdense cystic masses. There were no adrenal masses. The bladder wall maybe consistent with a cystitis. The patient was noted to have wbc's in the urine and may have urosepsis since he came with an elevated white count of 16,000. The patient was placed on IV Rocephin and his white count is improving. The patient is complaining of large amount of pain in both extremities. The patient also needs a right total knee replacement and according to the son, the cartilage in both knee caps was completely obliterated and its bone on bone rubbing in both knees. The patient is on high dose pain medication including oxycodone which caused constipation. The patient does have a large amount stool in the colon seen on the CAT scan. PAST MEDICAL HISTORY: Includes hypertension and hyperlipidemia. PHYSICAL EXAMINATION GENERAL: Today, the patient is very uncomfortable postop. HEENT: Grossly within normal limits. NECK: Supple. Thyroid nonpalpable. ABDOMEN: Soft, nondistended, nontender. No CVA tenderness and no suprapubic tenderness. GENITOURINARY: A 15-Swedish Ford catheter is draining darryl urine well at this hour. GENITALIA: Testicles are down bilaterally, nontender. RECTAL EXAMINATION: Showed normal rectal pelvis without fluctuance or masses. Prostate is average size to slightly enlarged, smooth, symmetrical, nontender, without nodules or indurations with a palpable median sulcus. VITAL SIGNS: Today, 11/04/2018, shows temperature of 98.5, pulse rate is 80, blood pressure is 121/60, respiratory rate is 20 and O2 sat on room air is 95%. LABORATORY DATA: His laboratory evaluation on 11/03/2018, his WBC count was 16.5 and now on 11/04/2018, it is 12.5 on IV Rocephin. His hemoglobin is 10.4, hematocrit 31.5 and platelet count of 423,000. On 11/03/2018, his chem profile showed a sodium of 133, potassium 4.3, chloride 100, CO2 25. BUN and creatinine 22 and 1.3 respectively with a GFR of 52, indicating chronic kidney disease stage III, calcium was 9.0. Urinalysis also on 11/03/2018 showed the color was yellow, clarity was cloudy, pH 6.0, specific gravity 1.012, protein was 100, glucose negative, ketones negative, blood large, nitrite negative, bilirubin negative. Urobilinogen 0.2 to 1.0, Moderate leukocyte esterase, 28 rbc's, 36 wbc's with few bacteria per high-power field. DIAGNOSTIC IMPRESSION: 1. Postop urinary retention. 2. Possible urosepsis. 3. hyperdense cystic renal masses. PLAN: Plan for this patient is to continue the patient on his IV antibiotic regimen. Check the urine cultures and blood cultures if they were done. We will start the patient on Flomax 0.4 mg b.i.d. and we will order a followup renal ultrasound to check the hyperdense cystic renal masses in both kidneys. Armando Morales MD MTDKimberly
--- NOTE | 2018-11-05 02:02 | CON ---
DATE: 11/04/2018 HISTORY OF PRESENT ILLNESS: Mr. Cunningham is an 88-year-old male who had a traumatic Ford catheter insertion in the Home. While undergoing rehab for left knee surgery, he developed urinary retention and had to have a Ford catheter placed. The Ford was not in the bladder and he was transferred to [facility] where the Ford was replaced properly and he was admitted for urinary tract infection and for IV antibiotic therapy and urology evaluation. He presently seems much more comfortable and seems to be improving with IV hydration and IV antibiotics. PAST MEDICAL HISTORY: Unremarkable. SOCIAL HISTORY: Socially, he does not smoke or drink. REVIEW OF SYSTEMS: Remarkable for knee pain. PHYSICAL EXAMINATION: GENERAL: The patient is alert and oriented, appears to be comfortable at present. VITAL SIGNS: Stable. LUNGS: Clear. HEART: Regular, no murmurs or gallops. ABDOMEN: Soft, nontender, no organomegaly. EXTREMITIES: Status post left knee surgery. Ford catheter seems to be in place. CENTRAL NERVOUS SYSTEM: Grossly intact. IMPRESSION: Urinary tract infection, status post traumatic Ford insertion, and sepsis. PLAN: The plan is IV antibiotics, analgesics for pain, IV hydration. Urology evaluation. The patient to be discharged back to rehab once appropriate arrangements are discussed with his son regards to his disposition. Blaine Norris MD
[2018-11-05] MEDS: oxyCODONE 10 mg Immediate Release Tab PO PRN ×3 (02:17→23:41)
[2018-11-05] MEDS: Enoxaparin 40 mg Syringe SC SCH (08:27)
--- NOTE | 2018-11-05 12:24 | CP.PCM.PN ---
Subjective - Date & Time of Evaluation Date of Evaluation: 11/05/18 Time of Evaluation: 12:27 - Subjective Subjective: STILL HAS L KNEE PAINS GARCIA IN PLACE Objective - Vital Signs/Intake and Output Vital Signs (last 24 hours): Temp Pulse Resp BP Pulse Ox 98.5 F 72 20 118/68 96 11/05/18 08:38 11/05/18 08:38 11/05/18 08:38 11/05/18 08:38 11/05/18 08:38 Intake and Output: 11/05/18 11/05/18 06:59 18:59 Intake Total 960 Output Total 1700 Balance -740 - Medications Medications: Current Medications Acetaminophen (Tylenol 325mg Tab) 650 mg PO Q4 PRN PRN Reason: Pain, Mild (1-3) Acetaminophen (Tylenol 325mg Tab) 650 mg PO Q4 PRN PRN Reason: Temp >100 Atenolol (Tenormin) 25 mg PO DAILY [facility] Last Admin: 11/05/18 08:27 Dose: 25 mg Enoxaparin Sodium (Lovenox) 40 mg SC DAILY [facility]; Protocol Last Admin: 11/05/18 08:27 Dose: 40 mg Famotidine (Pepcid) 40 mg PO [facility] Last Admin: 11/04/18 22:59 Dose: 40 mg Gabapentin (Neurontin) 100 mg PO HS [facility] Last Admin: 11/04/18 22:58 Dose: 100 mg Hydralazine HCl (Apresoline) 10 mg PO Q6 [facility] Last Admin: 11/05/18 09:33 Dose: 10 mg Ceftriaxone Sodium 1 gm/ (Sodium Chloride) 100 mls @ 100 mls/hr IVPB DAILY [facility]; Protocol Last Admin: 11/05/18 08:24 Dose: 100 mls/hr Lactulose (Enulose) 20 gm PO DAILY [facility] Last Admin: 11/05/18 08:35 Dose: Not Given Lisinopril (Zestril) 20 mg PO DAILY [facility] Last Admin: 11/05/18 08:28 Dose: 20 mg Magnesium Hydroxide (Milk Of Magnesia) 30 ml PO DAILY PRN PRN Reason: No bowel movement x 3 days Oxycodone HCl (Oxycodone Immediate Release Tab) 5 mg PO Q4 PRN PRN Reason: Pain, moderate (4-7) Oxycodone HCl (Oxycodone Immediate Release Tab) 10 mg PO Q4 PRN PRN Reason: Pain, severe (8-10) Last Admin: 11/05/18 08:25 Dose: 10 mg Tamsulosin HCl (Flomax) 0.4 mg PO BID [facility] Last Admin: 11/05/18 08:27 Dose: 0.4 mg - Labs Labs: 11/04/18 07:00 11/03/18 13:15 - Constitutional Appears: Chronically Ill - Head Exam Head Exam: ATRAUMATIC, NORMAL INSPECTION, NORMOCEPHALIC - Eye Exam Eye Exam: EOMI, Normal appearance, PERRL Pupil Exam: NORMAL ACCOMODATION, PERRL - ENT Exam ENT Exam: Mucous Membranes Moist, Normal Exam - Neck Exam Neck Exam: Full ROM, Normal Inspection. absent: Lymphadenopathy - Respiratory Exam Respiratory Exam: Clear to Ausculation Bilateral, NORMAL BREATHING PATTERN - Cardiovascular Exam Cardiovascular Exam: REGULAR RHYTHM, +S1, +S2. absent: Murmur - GI/Abdominal Exam GI & Abdominal Exam: Soft, Normal Bowel Sounds. absent: Tenderness - Rectal Exam Rectal Exam: NORMAL INSPECTION - Exam Additional comments: GARCIA IN PLACE - Extremities Exam Extremities Exam: Full ROM, Normal Capillary Refill, Tenderness. 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
[2018-11-05] MEDS: Dextrose 5%/0.45% NS 1,000 ML IV SCH (19:50)
[2018-11-06] MEDS: Enoxaparin 40 mg Syringe SC SCH (09:18)
--- NOTE | 2018-11-06 12:07 | CP.PCM.PN ---
Subjective - Date & Time of Evaluation Date of Evaluation: 11/06/18 Time of Evaluation: 12:07 - Subjective Subjective: GARCIA DRAINING CLEAR URINE LEG PAIN PERSISTS Objective - Vital Signs/Intake and Output Vital Signs (last 24 hours): Temp Pulse Resp BP Pulse Ox 98.1 F 73 20 108/67 97 11/06/18 07:55 11/06/18 09:19 11/06/18 07:55 11/06/18 09:19 11/06/18 07:55 Intake and Output: 11/06/18 11/06/18 06:59 18:59 Output Total 1700 Balance -1700 - Medications Medications: Current Medications Acetaminophen (Tylenol 325mg Tab) 650 mg PO Q4 PRN PRN Reason: Pain, Mild (1-3) Acetaminophen (Tylenol 325mg Tab) 650 mg PO Q4 PRN PRN Reason: Temp >100 Atenolol (Tenormin) 25 mg PO DAILY [facility] Last Admin: 11/06/18 09:19 Dose: 25 mg Enoxaparin Sodium (Lovenox) 40 mg SC DAILY [facility]; Protocol Last Admin: 11/06/18 09:18 Dose: 40 mg Famotidine (Pepcid) 40 mg PO HS [facility] Last Admin: 11/05/18 22:15 Dose: 40 mg Gabapentin (Neurontin) 100 mg PO HS [facility] Last Admin: 11/05/18 22:15 Dose: 100 mg Hydralazine HCl (Apresoline) 10 mg PO Q6 [facility] Last Admin: 11/06/18 09:18 Dose: 10 mg Dextrose/Sodium Chloride (Dextrose 5%/0.45% Ns 1000 Ml) 1,000 mls @ 40 mls/hr IV .Q24H [facility] Stop: 11/08/18 19:22 Last Admin: 11/05/18 19:50 Dose: 40 mls/hr Ciprofloxacin (Cipro 400mg/200ml Dsw) 400 mg in 200 mls @ 200 mls/hr IVPB Q12 [facility]; Protocol Lactulose (Enulose) 20 gm PO DAILY [facility] Last Admin: 11/06/18 09:20 Dose: 20 gm Lisinopril (Zestril) 20 mg PO DAILY [facility] Last Admin: 11/06/18 09:19 Dose: 20 mg Magnesium Hydroxide (Milk Of Magnesia) 30 ml PO DAILY PRN PRN Reason: No bowel movement x 3 days Oxycodone HCl (Oxycodone Immediate Release Tab) 5 mg PO Q4 PRN PRN Reason: Pain, moderate (4-7) Tamsulosin HCl (Flomax) 0.4 mg PO BID [facility] Last Admin: 11/06/18 09:18 Dose: 0.4 mg - Labs Labs: 11/04/18 07:00 11/03/18 13:15 - Constitutional Appears: No Acute Distress - Head Exam Head Exam: ATRAUMATIC, NORMAL INSPECTION, NORMOCEPHALIC - Eye Exam Eye Exam: EOMI, Normal appearance, PERRL Pupil Exam: NORMAL ACCOMODATION, PERRL - ENT Exam ENT Exam: Mucous Membranes Moist, Normal Exam - Neck Exam Neck Exam: Full ROM, Normal Inspection. absent: Lymphadenopathy - Respiratory Exam Respiratory Exam: Clear to Ausculation Bilateral, NORMAL BREATHING PATTERN - Cardiovascular Exam Cardiovascular Exam: REGULAR RHYTHM, +S1, +S2. absent: Murmur - GI/Abdominal Exam GI & Abdominal Exam: Soft, Normal Bowel Sounds. absent: Tenderness - Rectal Exam Rectal Exam: NORMAL INSPECTION - Extremities Exam Extremities Exam: Full ROM, Normal Capillary Refill. absent: Joint Swelling, Pedal Edema Additional comments: SURGICAL DRESSING IN PLACE GAIT UNSTEADY - Back Exam Back Exam: NORMAL INSPECTION - Neurological Exam Neurological Exam: Abnormal Gait, Alert, Awake, CN II-XII Intact, Oriented x3 - Psychiatric Exam Psychiatric exam: Normal Affect, Normal Mood - Skin Skin Exam: Dry, Intact, Normal Color, Warm Assessment and Plan - Assessment and Plan (Free Text) Assessment: PSEUDOMONAS UTI RENAL LESIONS S/P KNEE SURGERY Plan: CONTINUE CURRENT RX PT/OT
[2018-11-06] MEDS: oxyCODONE 5 mg Immediate Release Tab PO PRN ×2 (13:28→16:58)
[2018-11-06] MEDS: Ciprofloxacin 400mg/200ml D5W 400 MG/200 ML BAG IVPB SCH ×2 (13:29→21:11)
--- NOTE | 2018-11-06 19:20 | US ---
Date of service: 11/04/2018 PROCEDURE: Ultrasound of the Kidneys bilateral HISTORY: renal hyperdense cystic lesions on CT COMPARISON: None available. TECHNIQUE: Sonogram of the kidneys. FINDINGS: RIGHT KIDNEY: Measures: 9.7 x 4.3 x 4.2 cm. Normal in size, contour and echogenicity. No stone, solid mass lesion or hydronephrosis visualized. Apparent lower pole exophytic cyst 1.6 x 1.1 x 1.4 cm LEFT KIDNEY: Measures: 9.5 x 4.2 x 4.7 cm. Normal in size, contour and echogenicity. No stone, solid mass lesion or hydronephrosis visualized. Small cyst lower pole left kidney measuring 2.7 x 2.6 x 2.5 cm. Previously described tiny 2.8 mm hyperdense exophytic focus anterior aspect lower pole is not appreciated on this study OTHER FINDINGS: None. IMPRESSION: There are small bilateral renal cysts as detailed above. A very small approximately 2.8 mm hyperdense exophytic focus lower pole left kidney is not appreciated on this exam
[2018-11-06] MEDS: Dextrose 5%/0.45% NS 1,000 ML IV SCH (20:00)
--- NOTE | 2018-11-06 20:25 | PN ---
DATE: 11/06/2018 FOLLOWUP NOTE TIME OF FOLLOWUP: Roughly 04:40 p.m. SUBJECTIVE: The patient is resting more comfortably this evening. He still has pain in both lower extremities, but seems to be improved at this hour. His Ford catheter is draining darryl urine well. PHYSICAL EXAMINATION: ABDOMEN: Soft, nondistended, nontender. No CVA tenderness. No suprapubic tenderness. His urine C and S done on 11/05/2018 was positive for Pseudomonas 50 to 100,000 colonies, sensitive to Cipro, and the patient is currently on IV Cipro. The patient has improved CBC with a WBC count now down to 12.5 from 16.5 on 11/04/2018 and hemoglobin is 10.4, hematocrit 31.5, with a platelet count of 423,000. The patient is also on Flomax p.o. for acute urinary retention. DIAGNOSTIC IMPRESSION: 1. Urinary retention. 2. Pseudomonas urinary tract infection. 3. Bilateral hyperdense renal cystic masses. PLAN: To check the renal ultrasound with Radiology. The Ford catheter can be discontinued for voiding trial when the patient is off his pain medication and his constipation is resolved. Armando Morales MD MTDD
[2018-11-07] MEDS: Enoxaparin 40 mg Syringe SC SCH (09:12)
--- NOTE | 2018-11-07 10:51 | CP.PCM.PN ---
Subjective - Date & Time of Evaluation Date of Evaluation: 11/07/18 Time of Evaluation: 10:51 - Subjective Subjective: CLINICALLY IMPROVING L KNEE PAIN PERSISTS GARCIA CATH STILL IN PLACE DRAINING CLEAR URINE Objective - Vital Signs/Intake and Output Vital Signs (last 24 hours): Temp Pulse Resp BP Pulse Ox 98.3 F 76 19 113/60 96 11/07/18 08:09 11/07/18 09:14 11/07/18 08:09 11/07/18 09:14 11/07/18 08:09 Intake and Output: 11/07/18 11/07/18 06:59 18:59 Intake Total 620 Output Total 1500 Balance -880 - Medications Medications: Current Medications Acetaminophen (Tylenol 325mg Tab) 650 mg PO Q4 PRN PRN Reason: Pain, Mild (1-3) Acetaminophen (Tylenol 325mg Tab) 650 mg PO Q4 PRN PRN Reason: Temp >100 Atenolol (Tenormin) 25 mg PO DAILY [facility] Last Admin: 11/07/18 09:13 Dose: 25 mg Enoxaparin Sodium (Lovenox) 40 mg SC DAILY [facility]; Protocol Last Admin: 11/07/18 09:12 Dose: 40 mg Famotidine (Pepcid) 40 mg PO HS [facility] Last Admin: 11/06/18 22:22 Dose: 40 mg Gabapentin (Neurontin) 100 mg PO HS [facility] Last Admin: 11/06/18 22:22 Dose: 100 mg Hydralazine HCl (Apresoline) 10 mg PO Q6 [facility] Last Admin: 11/07/18 09:10 Dose: 10 mg Dextrose/Sodium Chloride (Dextrose 5%/0.45% Ns 1000 Ml) 1,000 mls @ 40 mls/hr IV .Q24H [facility] Stop: 11/08/18 19:22 Last Admin: 11/06/18 20:00 Dose: 40 mls/hr Ciprofloxacin (Cipro 400mg/200ml Dsw) 400 mg in 200 mls @ 200 mls/hr IVPB Q12 [facility]; Protocol Last Admin: 11/06/18 21:11 Dose: 200 mls/hr Lactulose (Enulose) 20 gm PO DAILY [facility] Last Admin: 11/07/18 09:11 Dose: 20 gm Lisinopril (Zestril) 20 mg PO DAILY [facility] Last Admin: 11/07/18 09:14 Dose: 20 mg Magnesium Hydroxide (Milk Of Magnesia) 30 ml PO DAILY PRN PRN Reason: No bowel movement x 3 days Oxycodone HCl (Oxycodone Immediate Release Tab) 5 mg PO Q4 PRN PRN Reason: Pain, moderate (4-7) Last Admin: 11/06/18 16:58 Dose: 5 mg Tamsulosin HCl (Flomax) 0.4 mg PO BID [facility] Last Admin: 11/07/18 09:11 Dose: 0.4 mg - Labs Labs: 11/04/18 07:00 11/03/18 13:15 - Constitutional Appears: No Acute Distress - Head Exam Head Exam: ATRAUMATIC, NORMAL INSPECTION, NORMOCEPHALIC - Eye Exam Eye Exam: EOMI, Normal appearance, PERRL Pupil Exam: NORMAL ACCOMODATION, PERRL - ENT Exam ENT Exam: Mucous Membranes Moist, Normal Exam - Neck Exam Neck Exam: Full ROM, Normal Inspection. absent: Lymphadenopathy - Respiratory Exam Respiratory Exam: Clear to Ausculation Bilateral, NORMAL BREATHING PATTERN - Cardiovascular Exam Cardiovascular Exam: REGULAR RHYTHM, +S1, +S2. absent: Murmur - GI/Abdominal Exam GI & Abdominal Exam: Soft, Normal Bowel Sounds. absent: Tenderness - Rectal Exam Rectal Exam: NORMAL INSPECTION - Extremities Exam Extremities Exam: Full ROM, Normal Capillary Refill, Tenderness. 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
[2018-11-07 10:58] LABS: HEMOGLOBIN 10.8 g/dL (12.0-18.0); MEAN CORPUSCULAR HEMOGLOBIN 32.2 pg (27.0-31.0); MEAN CORPUSCULAR HGB CONC 33.2 g/dL (33.0-37.0); RBC 3.36 Mil/uL (4.40-5.90); RED CELL DISTRIBUTION WIDTH 13.5 % (11.5-14.5); WHITE BLOOD COUNT 7.6 K/uL (4.8-10.8)
--- NOTE | 2018-11-07 11:07 | RAD ---
Date of service: 11/06/2018 PROCEDURE: Bilateral Knee Radiographs. HISTORY: bilateral knee pain COMPARISON: Left knee from 10/20/2018 FINDINGS: BONES: Right Knee: Bone alignment and mineralization are normal. There is no acute displaced fracture or bone destruction. Left Knee: Bone alignment and mineralization are normal. There is no acute displaced fracture or bone destruction. JOINTS: Right Knee: There is severe tricompartmental degenerative osteoarthrosis with reduced joint spaces, marginal osteophytes and tibial spiking, worse in the medial compartment. Left knee: Status post total cemented left knee arthroplasty. No hardware complications. SOFT TISSUES: Right Knee: Normal. Left Knee: Normal. JOINT EFFUSION: Right Knee: Small suprapatellar joint effusion Left Knee: Moderate suprapatellar joint effusion. OTHER FINDINGS: Moderate suprapatellar soft tissue swelling in the left knee. Anterior skin jennifer are identified. IMPRESSION: 1. Severe tricompartmental degenerative osteoarthrosis, worse in the medial compartment in the right knee joint. 2. Status post total cemented left knee arthroplasty, no acute complications. Moderate suprapatellar joint effusion and soft tissue swelling history.
[2018-11-07 11:14] LABS: BLOOD UREA NITROGEN 18 mg/dl (9-20); CALCIUM 8.8 mg/dL (8.4-10.2); GFR NON-AFRICAN AMERICAN > 60
[2018-11-07] MEDS: Ciprofloxacin 400mg/200ml D5W 400 MG/200 ML BAG IVPB SCH (11:38)
--- NOTE | 2018-11-07 12:37 | CP.PCM.CON ---
History of Present Illness - History of Present Illness History of Present Illness: Orthopedic consultation Dr. Goddard 88M known to service 2 1/2 weeks sp left TKR. Patient was transferred to [facility] for UTI/sepsis. Patient states he still has a lot of pain in his left knee, but it is getting better. He says he is going to have his right knee done as well after he recovers from the left one. Denies CP/SOB/dizziness/numbness/tingling. Review of Systems - Review of Systems All systems: reviewed and no additional remarkable complaints except - Cardiovascular Cardiovascular: As Per HPI - Respiratory Respiratory: As Per HPI - Gastrointestinal Gastrointestinal: As Per HPI - Musculoskeletal Musculoskeletal: As Per HPI - Integumentary Integumentary: As Per HPI - Neurological Neurological: As Per HPI - Hematologic/Lymphatic Hematologic: absent: As Per HPI, Easy Bleeding, Easy Bruising, Lymphadenopathy, Other Past Patient History - Past Medical History & Family History Past Medical History?: Yes - Past Social History Smoking Status: Never Smoked - CARDIAC Hx Hypertension: Yes - PULMONARY Hx Respiratory Disorders: No - NEUROLOGICAL Hx Neurological Disorder: No - HEENT Hx HEENT Problems: No - RENAL Hx Chronic Kidney Disease: No - ENDOCRINE/METABOLIC Hx Endocrine Disorders: No - HEMATOLOGICAL/ONCOLOGICAL Hx Blood Disorders: No Hx AIDS: No Hx Human Immunodeficiency Virus (HIV): No - INTEGUMENTARY Hx Dermatological Problems: No - MUSCULOSKELETAL/RHEUMATOLOGICAL Hx Arthritis: Yes (knees) - GASTROINTESTINAL Hx Gastrointestinal Disorders: No - GENITOURINARY/GYNECOLOGICAL Hx Genitourinary Disorders: Yes Hx Urinary Tract Infection: Yes Other/Comment: urinary retention - PSYCHIATRIC Hx Psychophysiologic Disorder: No Hx Substance Use: No - SURGICAL HISTORY Hx Surgeries: Yes Hx Orthopedic Surgery: Yes (LTKR 10/27/2018) - ANESTHESIA Hx Anesthesia: Yes Hx Anesthesia Reactions: No (as per son) Hx Malignant Hyperthermia: No Has any member of the family had a problem w/ anesthesia?: No Meds Home Medications: Home Medication List Medication Instructions Recorded Confirmed Type Ciprofloxacin IV [Cipro] 400 mg IVPB Q12 #14 vial 11/07/18 Rx Lactulose [Enulose] 20 gm PO DAILY udc 11/07/18 Rx Tamsulosin [Flomax] 0.4 mg PO BID cap 11/07/18 Rx Allergies/Adverse Reactions: Allergies Allergy/AdvReac Type Severity Reaction Status Date / Time No Known Allergies Allergy Verified 10/19/18 12:06 - Medications Medications: Current Medications Acetaminophen (Tylenol 325mg Tab) 650 mg PO Q4 PRN PRN Reason: Pain, Mild (1-3) Acetaminophen (Tylenol 325mg Tab) 650 mg PO Q4 PRN PRN Reason: Temp >100 Atenolol (Tenormin) 25 mg PO DAILY [facility] Last Admin: 11/07/18 09:13 Dose: 25 mg Enoxaparin Sodium (Lovenox) 40 mg SC DAILY [facility]; Protocol Last Admin: 11/07/18 09:12 Dose: 40 mg Famotidine (Pepcid) 40 mg PO HS [facility] Last Admin: 11/06/18 22:22 Dose: 40 mg Gabapentin (Neurontin) 100 mg PO HS [facility] Last Admin: 11/06/18 22:22 Dose: 100 mg Hydralazine HCl (Apresoline) 10 mg PO Q6 [facility] Last Admin: 11/07/18 09:10 Dose: 10 mg Dextrose/Sodium Chloride (Dextrose 5%/0.45% Ns 1000 Ml) 1,000 mls @ 40 mls/hr IV .Q24H [facility] Stop: 11/08/18 19:22 Last Admin: 11/06/18 20:00 Dose: 40 mls/hr Ciprofloxacin (Cipro 400mg/200ml Dsw) 400 mg in 200 mls @ 200 mls/hr IVPB Q12 [facility]; Protocol Last Admin: 11/07/18 11:38 Dose: 200 mls/hr Lactulose (Enulose) 20 gm PO DAILY [facility] Last Admin: 11/07/18 09:11 Dose: 20 gm Lisinopril (Zestril) 20 mg PO DAILY [facility] Last Admin: 11/07/18 09:14 Dose: 20 mg Magnesium Hydroxide (Milk Of Magnesia) 30 ml PO DAILY PRN PRN Reason: No bowel movement x 3 days Oxycodone HCl (Oxycodone Immediate Release Tab) 5 mg PO Q4 PRN PRN Reason: Pain, moderate (4-7) Last Admin: 11/06/18 16:58 Dose: 5 mg Tamsulosin HCl (Flomax) 0.4 mg PO BID [facility] Last Admin: 11/07/18 09:11 Dose: 0.4 mg Physical Exam - Constitutional Appears: Well, No Acute Distress - Head Exam Head Exam: ATRAUMATIC - Neck Exam Neck exam: Positive for: Full Rom, Normal Inspection - Respiratory Exam Respiratory Exam: NORMAL BREATHING PATTERN - Cardiovascular Exam Additional comments: +Dp/PT pulses - Expanded Lower Extremities Exam Left Knee exam: tenderness (patient sitting in chair with knee flexed comfortable to 80 degrees. minimall tenderness) Ankle exam: FULL ROM Neuro vacular tendon exam: no vascular compromise - Neurological Exam Neurological exam: Alert, Oriented x3 - Psychiatric Exam Psychiatric exam: Normal Affect, Normal Mood - Skin Skin Exam: Dry, Intact (incision healing well, mild swelling and ecchymosis to knee, no erythema, dry, jennifer removed, steristrips applied), Warm Results - Vital Signs Recent Vital Signs: Last Vital Signs Temp 98.3 F 11/07/18 08:09 Pulse 76 11/07/18 09:14 Resp 19 11/07/18 08:09 BP 113/60 11/07/18 09:14 Pulse Ox 96 11/07/18 08:09 - Labs Result Diagrams: 11/04/18 07:00 11/07/18 10:52 Labs: Laboratory Results - last 24 hr 11/07/18 10:52 Sodium 135 Potassium 3.9 Chloride 102 Carbon Dioxide 25 Anion Gap 12 BUN 18 Creatinine 1.0 Est GFR ( Amer) > 60 Est GFR (Non-Af Amer) > 60 Random Glucose 126 H Calcium 8.8 - Impressions Impression: atient Name / ID : PETE GOLD / [id number] Exam Date : 11/06/2018 21:17:57 ( Approved ) Study Comment : Sex / Age : M / 88Y Creator : Urslua Astorga MD Dictator : Ursula Astorga MD Spray Gun Striper : Pit Shovel Operator : Ursula Astorga MD Approver2 : Report Date : 11/07/2018 11:01:41 My Comment : Date of service: 11/06/2018 PROCEDURE: Bilateral Knee Radiographs. HISTORY: bilateral knee pain COMPARISON: Left knee from 10/20/2018 FINDINGS: BONES: Right Knee: Bone alignment and mineralization are normal. There is no acute displaced fracture or bone destruction. Left Knee: Bone alignment and mineralization are normal. There is no acute displaced fracture or bone destruction. JOINTS: Right Knee: There is severe tricompartmental degenerative osteoarthrosis with reduced joint spaces, marginal osteophytes and tibial spiking, worse in the medial compartment. Left knee: Status post total cemented left knee arthroplasty. No hardware complications. SOFT TISSUES: Right Knee: Normal. Left Knee: Normal. JOINT EFFUSION: Right Knee: Small suprapatellar joint effusion Left Knee: Moderate suprapatellar joint effusion. OTHER FINDINGS: Moderate suprapatellar soft tissue swelling in the left knee. Anterior skin jennifer are identified. IMPRESSION: 1. Severe tricompartmental degenerative osteoarthrosis, worse in the medial compartment in the right knee joint. 2. Status post total cemented left knee arthroplasty, no acute complications. Moderate suprapatellar joint effusion and soft tissue swelling history. Assessment & Plan (1) Status post total left knee replacement Assessment and Plan: progressing well no clinical suspicion of infection of knee cont PT/OT knee immobilizer at night only VTE proph jennifer removed d/w Dr. Goddard, agrees with above f/u in office in 7-10 days ortho stable for d/c to rehab Status: Acute
[2018-11-07 16:26] VITALS: BP 111/61; PULSE 73; RESP 20; TEMP 97.5
[2018-11-07 23:13] VITALS: O2SAT 98
--- NOTE | 2018-11-08 11:08 | CP.PCM.DIS ---
Provider - Provider Date of Admission: 11/03/18 17:55 Attending physician: Blaine Norris MD Consults: 11/03/18 23:17 Urology Consult Routine Comment: Consulting Provider: Armando Morales Consulting Physician: Armando Morales Reason for Consult: urinary retention/ misplaced garcia catheter in care home 11/04/18 00:52 Nursing Referral for Wound Care Routine Comment: Physician Instructions: Reason For Exam: scabbed wound sacral- with redness to surrounding 11/04/18 02:52 Case Management Referral Routine Comment: Physician Instructions: Reason For Exam: Reason for Referral: Discharge Planning 11/06/18 17:46 Orthopedic Consult Routine Comment: Consulting Provider: Felix Goddard III Consulting Physician: Felix Goddard III Reason for Consult: s/p left knee surgery, bilateral knee pain Time Spent in preparation of Discharge (in minutes): 30 Diagnosis - Discharge Diagnosis (1) Urinary tract infection Status: Acute (2) Sepsis Status: Acute (3) Displacement of Garcia catheter Status: Acute (4) Hypertension Status: Acute (5) Primary osteoarthritis of left knee Status: Acute (6) Status post total left knee replacement Status: Acute Hospital Course - Lab Results Lab Results: Micro Results 11/03/18 17:50 Blood Blood Culture - Preliminary NO GROWTH AFTER 4 DAYS 11/03/18 15:22 Urine,Clean Catch Urine Culture - Final Pseudomonas Aeruginosa Most Recent Lab Values WBC 7.6 K/uL (4.8-10.8) 11/07/18 10:52 RBC 3.36 Mil/uL (4.40-5.90) L 11/07/18 10:52 Hgb 10.8 g/dL (12.0-18.0) L 11/07/18 10:52 Hct 32.6 % (35.0-51.0) L 11/07/18 10:52 MCV 97.0 fl (80.0-94.0) H D 11/07/18 10:52 MCH 32.2 pg (27.0-31.0) H 11/07/18 10:52 MCHC 33.2 g/dL (33.0-37.0) 11/07/18 10:52 RDW 13.5 % (11.5-14.5) 11/07/18 10:52 Plt Count 494 K/uL (130-400) H 11/07/18 10:52 MPV 6.8 fl (7.2-11.7) L 11/03/18 13:15 Neut % (Auto) 79.6 % (50.0-75.0) H 11/03/18 13:15 Lymph % (Auto) 8.9 % (20.0-40.0) L 11/03/18 13:15 [place] % (Auto) 10.1 % (0.0-10.0) H 11/03/18 13:15 Eos % (Auto) 0.9 % (0.0-4.0) 11/03/18 13:15 Baso % (Auto) 0.5 % (0.0-2.0) 11/03/18 13:15 Neut # (Auto) 13.1 K/uL (1.8-7.0) H 11/03/18 13:15 Lymph # (Auto) 1.5 K/uL (1.0-4.3) 11/03/18 13:15 [place] # (Auto) 1.7 K/uL (0.0-0.8) H 11/03/18 13:15 Eos # (Auto) 0.2 K/uL (0.0-0.7) 11/03/18 13:15 Baso # (Auto) 0.1 K/uL (0.0-0.2) 11/03/18 13:15 Neutrophils % (Manual) 77 % (42-75) H 11/03/18 13:15 Band Neutrophils % 1 % (0-2) 11/03/18 13:15 Lymphocytes % (Manual) 9 % (20-50) L 11/03/18 13:15 Monocytes % (Manual) 11 % (0-10) H 11/03/18 13:15 Basophils % (Manual) 1 % (0-2) 11/03/18 13:15 Myelocytes % 1 % (0-0) H 11/03/18 13:15 Platelet Estimate Increased (NORMAL) H 11/03/18 13:15 Large Platelets Present 11/03/18 13:15 Hypochromasia (manual) Slight 11/03/18 13:15 pO2 48 mm/Hg (30-55) 11/03/18 18:47 VBG pH 7.43 (7.32-7.43) 11/03/18 18:47 VBG pCO2 35 mmHg (40-60) L 11/03/18 18:47 VBG HCO3 24.1 mmol/L 11/03/18 18:47 VBG Total CO2 24.3 mmol/L (22-28) 11/03/18 18:47 VBG O2 Sat (Calc) 86.7 % (40-65) H 11/03/18 18:47 VBG Base Excess -0.6 mmol/L (0.0-2.0) L 11/03/18 18:47 VBG Potassium 4.0 mmol/L (3.6-5.2) 11/03/18 18:47 Sodium 131.0 mmol/L (132-148) L 11/03/18 18:47 Chloride 103.0 mmol/L (98-107) 11/03/18 18:47 Glucose 136 mg/dL (75-110) H 11/03/18 18:47 Lactate 1.4 mmol/L (0.7-2.1) 11/03/18 18:47 FiO2 21.0 % 11/03/18 18:47 Sodium 135 mmol/l (132-148) 11/07/18 10:52 Potassium 3.9 MMOL/L (3.6-5.0) 11/07/18 10:52 Chloride 102 mmol/L (98-107) 11/07/18 10:52 Carbon Dioxide 25 mmol/L (22-30) 11/07/18 10:52 Anion Gap 12 (10-20) 11/07/18 10:52 BUN 18 mg/dl (9-20) 11/07/18 10:52 Creatinine 1.0 mg/dl (0.8-1.5) 11/07/18 10:52 Est GFR ( Amer) > 60 11/07/18 10:52 Est GFR (Non-Af Amer) > 60 11/07/18 10:52 Random Glucose 126 mg/dL (75-110) H 11/07/18 10:52 Calcium 8.8 mg/dL (8.4-10.2) 11/07/18 10:52 Venous Blood Potassium 4.0 mmol/L (3.6-5.2) 11/03/18 18:47 Urine Color Yellow (YELLOW) 11/03/18 15:22 Urine Clarity Cloudy (Clear) 11/03/18 15:22 Urine pH 6.0 (5.0-8.0) 11/03/18 15:22 Ur Specific [place] 1.012 (1.003-1.030) 11/03/18 15:22 Urine Protein 100 mg/dL (NEGATIVE) 11/03/18 15:22 Urine Glucose (UA) Neg mg/dL (NEGATIVE) 11/03/18 15:22 Urine Ketones Negative mg/dL (NEGATIVE) 11/03/18 15:22 Urine Blood Large (NEGATIVE) 11/03/18 15:22 Urine Nitrate Negative (NEGATIVE) 11/03/18 15:22 Urine Bilirubin Negative (NEGATIVE) 11/03/18 15:22 Urine Urobilinogen 0.2-1.0 mg/dL (0.2-1.0) 11/03/18 15:22 Ur Leukocyte Esterase Mod [place]/uL (Negative) 11/03/18 15:22 Urine RBC (Auto) 28 /hpf (0-3) H 11/03/18 15:22 Urine Microscopic WBC 36 /hpf (0-5) H 11/03/18 15:22 Ur Squamous Epith Cells < 1 /hpf (0-5) 11/03/18 15:22 Urine Bacteria Few (<OCC) H 11/03/18 15:22 Hyaline Casts 0-2 /hpf (0-2) 11/03/18 15:22 - Hospital Course Hospital Course: STILL IN PAIN WITH UNSTEADY GAIT GARCIA CATHETER IN PLACE U/A-PSEUDOMONAS Discharge Exam - Head Exam Head Exam: ATRAUMATIC - Eye Exam Eye Exam: EOMI, Normal appearance, PERRL Pupil Exam: NORMAL ACCOMODATION, PERRL - GI/Abdominal Exam GI & Abdominal Exam: Normal Bowel Sounds - Rectal Exam Rectal Exam: NORMAL INSPECTION - Exam Additional comments: GARCIA IN PLACE - Extremities Exam Extremities exam: tenderness Additional comments: TENDER L KNEE - Neurological Exam Neurological exam: Abnormal Gait, Alert, CN II-XII Intact, Oriented x3, Reflexes Normal - Psychiatric Exam Psychiatric exam: Normal Affect, Normal Mood - Skin Skin Exam: Dry, Intact, Normal Color, Warm Discharge Plan - Discharge Medications Prescriptions: Ciprofloxacin IV [Cipro] 400 mg IVPB Q12 #14 vial - Follow Up Plan Condition: STABLE Disposition: REHAB FACILITY/REHAB UNIT Instructions: Urinary Tract Infection, Adult (DC), How to Care for Your Garcia Catheter, Male, Sepsis, Adult (DC), Hypertension (DC), Hypertension (GEN) Referrals: Armando Morales MD [Staff Provider] - Blaine Norris MD [Staff Provider] -
--- NOTE | 2018-11-11 14:13 | PQF ---
PROVIDER RESPONSE TEXT: STAGE 1 SACRAL ULCER--PRESENT ON ADMISSION REVIEWER QUERY TEXT: Symptom Underlying Cause Please document the underlying cause of the patient?s documented diagnosis of sepsis or whether those are insignificant or unable to be further specified. The patient's Clinical Indicators include: xx Query created by: Layla Moscoso on 11/09/2018 10:14 AM Electronically signed by: Blaine Norris MD 11/11/2018 2:11 PM
--- NOTE | 2018-11-11 14:18 | PQF ---
PROVIDER RESPONSE TEXT: STAGE 1 R SACRAL DECUBITUS ULCER--PRESENT ON ADMISSION REVIEWER QUERY TEXT: Pressure Ulcer Type cook night has documented Right Sacrum Pressure Ulcer unstageable on 11/06/18. 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 Please specify the location and stage of pressure ulcer and that it was POA if in agreement or Other explanation of the findings. Pressure ulcer is documented in the Medical Record. Please specify the location, present onadmission status and/or stage: Location and laterality of pressure ulcer(s): POA status of each pressure ulcer: -- Not present on admission -- Present on admission -- Other -- Clinically unable to determine -- Unknown Stage of each pressure ulcer (National Pressure Ulcer Advisory Panel definitions): -- Stage I: Intact skin with non-blanchable redness of a localized area -- Stage II: Partial thickness skin loss involving dermis with a shallow open ulcer or an open serum -filled blister -- Stage III: Full thickness skin loss involving damage or necrosis of subcutaneous tissue -- Stage IV: Full thickness skin loss with exposed bone, tendon or muscle -- Unstageable: Full thickness tissue loss in which the base of the ulcer is covered by slough and/o r eschar in the wound bed The patient's Clinical Indicators include: 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 cook night has documented Right Sacrum Pressure Ulcer unstageable on 11/06/18. Recommend to apply iodosorb daily and cover with foam dressing Query created by: Symone Cross on 11/07/2018 11:20 AM Electronically signed by: Blaine Norris MD 11/11/2018 2:15 PM
== END 2018-11-07 16:00 | DRG 872 ==
LOC: H.ER 12:08 → H.ERHOLD 17:55 → H.MEDSURG1 22:20
PROVIDERS: ADMIT Internal Medicine Pulmonary Disease; ATTEND Internal Medicine Pulmonary Disease
DX: A41.9 Sepsis, unspecified organism (principal); T83.021A Displacement of indwelling urethral catheter, initial encounter; B96.5 Pseudomonas (aeruginosa) (mallei) (pseudomallei) as the cause of diseases classified elsewhere; Z96.652 Presence of left artificial knee joint; M41.9 Scoliosis, unspecified; K59.03 Drug induced constipation; T40.2X5A Adverse effect of other opioids, initial encounter; I12.9 Hypertensive chronic kidney disease with stage 1 through stage 4 chronic kidney disease, or unspecified chronic kidney disease; N18.3 Chronic kidney disease, stage 3 (moderate); E78.5 Hyperlipidemia, unspecified; N30.90 Cystitis, unspecified without hematuria; M25.462 Effusion, left knee; M25.461 Effusion, right knee; M17.11 Unilateral primary osteoarthritis, right knee; R26.81 Unsteadiness on feet; N28.1 Cyst of kidney, acquired; L89.151 Pressure ulcer of sacral region, stage 1